=== PATIENT | male | born 1970 | race Two or more races ===

== ENCOUNTER 2022-03-02 09:04 | Day surgery (SDC) | payer BC ==
[~2022-03-02] VITALS: Ht 162.6 cm; Wt 68.0 kg
[~2022-03-02 09:04] MED LIST: AMOXICILLIN/CL500 MG PO; AMOXICILLIN250 M1 PO; AUGMENTIN500TAB PO; CARAFATE PO; CETIRIZ/PSE1 TAB PO; CLARITIN10 MG PO; COMBIVENT IN; COMBIVENT RESPIMAT IN; FARXIGA5 MG; FENOFIBRATE145 MG PO; FISH OIL1000 MG; FISH OIL1000 MG PO; FLONASE NASAL50 MCG; GLIPIZIDE ER5 M1 PO; LISINOPRIL5 MG PO; LOTRISONE TOP; MEDDOSEPAK OR; MEDDOSEPAK PO; METFORMIN1000 MG PO; MULTI VIT PO; MULTIVITAL PO; NEXIUM2.5 MG PO; PRILOSEC20 MG PO; SINGULAIR 10 MG10 MG PO; SINGULAIR PO; TAMSULOSIN HYD0.4 MG PO; TIZANIDINE HCL4 M1 PO; TRAMADOL HCL50 MG PO; TRICOR145 MG PO; VENTOLIN HFA IN
[2022-03-02 11:21] VITALS: BP 116/74
== END 2022-03-02 11:17 | disposition home or self-care (01) | DRG 951 ==
LOC: ENDO 09:04 → ORM 11:00 → ENDO 11:17
PROVIDERS: ATTEND Surgery
PROC: 0DJD8ZZ Inspection of Lower Intestinal Tract, Via Natural or Artificial Opening Endoscopic (ICD-10-PCS; principal; 2022-03-02)
PROC: 0DJ08ZZ Inspection of Upper Intestinal Tract, Via Natural or Artificial Opening Endoscopic (ICD-10-PCS; 2022-03-02)
DX: Z12.11 Encounter for screening for malignant neoplasm of colon (principal); K64.8 Other hemorrhoids; K31.9 Disease of stomach and duodenum, unspecified; I10 Essential (primary) hypertension; E11.9 Type 2 diabetes mellitus without complications; Z79.84 Long term (current) use of oral hypoglycemic drugs; Z87.11 Personal history of peptic ulcer disease; Z86.010 Personal history of colon polyps